=== PATIENT | female | born 1975 | race Caucasian/White ===

== ENCOUNTER 2016-10-03 07:48 | Observation (INO) | payer OTHER ==
[2016-10-03] MEDS ORDERED: ONDANSETRON HCL/PF 4 MG/ 2ML VIAL IVP ONE (07:58)
[2016-10-03] MEDS ORDERED: 0.9 % SODIUM CHLORIDE 500 ML IV ONE (07:58)
[2016-10-03] MEDS ORDERED: PANTOPRAZOLE SODIUM 40 MG in 0.9 % SODIUM CHLORIDE 50 ML IV ONE (08:02)
[2016-10-03 08:33] LABS: APPEARANCE,URINE Slightly Cloudy (CLEAR); COLOR,URINE Amber (YELLOW); OCCULT BLOOD,URINE 2+ (NEGATIVE)
[2016-10-03 08:41] LABS: AMPHETAMINE NEGATIVE ng/mL (<1000); BARBITURATES NEGATIVE ng/mL (<300); CANNABINOIDS NON NEGATIVE ng/mL (<50); COCAINE NEGATIVE ng/mL (<150); METHAMPHETAMINE NEGATIVE ng/mL (<1000); METHYLENEDIOXYMETHAMPHETAMINE NEGATIVE ng/mL (<500)
[2016-10-03 08:49] LABS: BASOPHILS % 0.1 (0.0-1.5); EOSINOPHILS % 0.4 % (0.0-6.8); MEAN CORPUSCULAR HEMOGLOBIN 34.8 pg (28.0-34.0); MEAN CORPUSCULAR VOLUME 101.8 fl (80.0-100.0); MONOCYTES % 2.6 % (0.0-11.0); NEUTROPHILS # 10.6 # k/uL (1.4-7.7)
[2016-10-03] MEDS ORDERED: HALOPERIDOL LACTATE 5 MG/ML VIAL IM ONE ×2 (09:03→17:49)
[2016-10-03] MEDS ORDERED: METOCLOPRAMIDE HCL 5 MG TABLET PO ONE (09:05)
[2016-10-03 09:07] LABS: eGFR (African) 23; eGFR (Non-African) 19
[2016-10-03] MEDS ORDERED: HYOSCYAMINE SULFATE 0.125 MG TAB.SUBL SL ONE (09:07)
[2016-10-03 12:42] VITALS: BMI 18.8
[2016-10-03] MEDS ORDERED: ONDANSETRON HCL/PF 4 MG/ 2ML VIAL IVP PRN (13:39)
[2016-10-03] MEDS ORDERED: HALOPERIDOL LACTATE 5 MG/ML VIAL IM SCH ×2 (13:39→18:00)
[2016-10-03] MEDS ORDERED: LORazepam 2 MG/ML VIAL IVP PRN (13:39)
[2016-10-03] MEDS ORDERED: 0.9 % SODIUM CHLORIDE 1,000 ML IV SCH (13:39)
--- NOTE | 2016-10-03 13:44 | ED Physician Documentation ---
Nausea/Vomiting/Diarrhea - HISTORIAN Historian: patient - HPI Stated Complaint: vomiting Chief Complaint: Nausea,Vomiting,Diarrhea Additional Information: Alcoholic, in program at [facility], unable to stop vomiting. Was admitted to detox at [facility] earlier week, released Thursday. Went home and drank on the way back to [facility] program. Intractable vomiting since Thursday. Onset: minutes Duration: persistent Timing: still present Context: other (alcoholism). denies: out of country travel, bad food, recent trauma Severity: moderate Further Comments: no - Associated Symptoms Vomiting: frequent Diarrhea: other (none) Abdominal Pain: cramping, epigastric - ROS CONST: other (alcoholism) CVS/RESP: denies: chest pain, shortness of breath, cough, dry cough, non- productive cough, productive cough, bloody cough GI/: other (recurrent n/v) MS/SKIN/LYMPH: denies: joint pain, leg swelling, rash, swollen glands, ankle swelling NEURO/PSYCH: none - PAST HX Past History: other (depression, gerd, htn, etoh abuse, chronic pancreatitisd) Surgeries/Procedures: other (hysterectomy) Immunizations: referred to PCP Allergies/Adverse Reactions: Allergies Allergy/AdvReac Type Severity Reaction Status Date / Time aspirin AdvReac Nausea/Vomi Verified 10/03/16 08:46 ting Home Medications: Ambulatory Orders Medication Instructions Recorded Carbamazepine [Tegretol] 200 mg PO BID 10/03/16 Cetirizine HCl [Zyrtec] 10 mg PO QDAY 10/03/16 Chlordiazepoxide HCl [Librium] 50 mg PO Q4 PRN 10/03/16 Citalopram Hydrobromide [Celexa] 20 mg PO QD 10/03/16 Fluticasone Propionate [Flovent 50 mcg IH 10/03/16 Diskus] Hydroxyzine HCl [Atarax] 25 - 50 mg PO TID PRN 10/03/16 Pantoprazole Sodium [Protonix] 40 mg PO 0700 10/03/16 Thiamine HCl [Vitamin B-1] 100 mg PO QDAY 10/03/16 Trazodone HCl 50 mg PO PRN 10/03/16 Vit B Comp&C/Folic Acid/Vit D3 1 each PO QDAY 10/03/16 [Dialyvite 800 Plus D Wafer] amLODIPine BESYLATE [Norvasc] 5 mg PO 0900 10/03/16 - SOCIAL HX Smoking History: cigarettes Alcohol Use: heavy Drug Use: marijuana - FAMILY HX Family History: other (catarracts) - VITAL SIGNS Vital Signs: Vital Signs Temp Pulse Resp BP Pulse Ox 97.9 F 95 H 16 130/93 97 10/03/16 12:37 10/03/16 12:37 10/03/16 12:37 10/03/16 12:37 10/03/16 12:37 - REVIEWED ASSESSMENTS Nursing Assessment Reviewed: Yes Vitals Reviewed: Yes Progress - Results/Orders Results/Orders: cbc, cmp, ua, amylase, ct abdomen/pelvis ordered - Progress Progress: Pt. given 5 mg Haldol im, 1 liter ns iv, Reglan 10 mg p.o., Hyoscyamine 0.25 mg p.o., Zofran 8 mg ivp, Protonix 40 mg ivpb in er. Critical Care Note - Critical Care Note Total Time (mins): 0 ED Results Lab/Radiology - Lab Results Lab Results: Lab Results 10/03/16 10/03/16 10/03/16 08:40 08:40 08:40 WBC 12.10 K/ul H K/ul (4.00-12.00) RBC 4.97 M/ul M/ul (3.90-5.20) Hgb 17.3 g/dL H g/dL (12.0-16.0) Hct 50.6 % H % (34.5-46.5) MCV 101.8 fl H fl (80.0-100.0) MCH 34.8 pg H pg (28.0-34.0) MCHC 34.2 g/dL g/dL (30.0-36.0) RDW 13.1 % % (11.3-14.3) Plt Count 155 K/mm3 K/mm3 (130-400) Neut % (Auto) 88.0 % H % (39.0-79.0) Lymph % (Auto) 7.6 % L % (16.0-50.0) Kimball % (Auto) 2.6 % % (0.0-11.0) Eos % (Auto) 0.4 % % (0.0-6.8) Baso % (Auto) 0.1 (0.0-1.5) Neut # 10.6 # k/uL H # k/uL (1.4-7.7) Lymph # 0.9 # k/uL # k/uL (0.6-4.0) Kimball # 0.3 # k/uL # k/uL (0.0-0.9) Eos # 0.0 # k/uL # k/uL (0.0-0.6) Baso # 0.0 # k/uL # k/uL (0.0-0.5) Reactive Lymphs % 1.3 % % (0.0-5.0) Reactive Lymphs # 0.2 # k/uL # k/uL (0.0-0.8) Sodium 140 mmol/L mmol/L (136-145) Potassium 3.0 mmol/L L mmol/L (3.5-5.0) Chloride 96 mmol/L L mmol/L (98-110) Carbon Dioxide 21 mmol/L mmol/L (20-32) BUN 14 mg/dL mg/dL (10-26) Creatinine 2.9 mg/dL H mg/dL (0.4-1.5) Estimated Creat Clear 24 Est GFR ( Amer) 23 L (60 - ) Est GFR (Non-Af Amer) 19 L (60 - ) Glucose 153 mg/dL H mg/dL (70-99) Calcium 11.5 mg/dL H mg/dL (8.5-10.5) Total Bilirubin 1.0 mg/dL mg/dL (0.2-1.2) AST 71 U/L H U/L (0-41) ALT 48 U/L H U/L (0-45) Alkaline Phosphatase 134 U/L H U/L (46-116) Total Protein 10.4 g/dL H g/dL (6.0-8.5) Albumin 5.9 g/dL H g/dL (3.0-5.5) Amylase 96 U/L U/L (20-104) Serum HCG, Qual Negative (NEGATIVE) Urine Color Urine Appearance Urine pH Ur Specific [place] Urine Protein Urine Ketones Urine Occult Blood Urine Nitrite Urine Bilirubin Urine Urobilinogen Ur Leukocyte Esterase Urine Glucose Opiates Screen Oxycodone Screen Methadone Screen POC Urine Barbiturates Amphetamines Screen POC Ur Methamphetamine MDMA Benzodiazepines Screen Cocaine Screen Marijuana (THC) Screen Ethyl Alcohol < 10.0 MG/DL MG/DL (<10.0) 10/03/16 10/03/16 08:25 08:25 WBC RBC Hgb Hct MCV MCH MCHC RDW Plt Count Neut % (Auto) Lymph % (Auto) Kimball % (Auto) Eos % (Auto) Baso % (Auto) Neut # Lymph # [place] # Eos # Baso # Reactive Lymphs % Reactive Lymphs # Sodium Potassium Chloride Carbon Dioxide BUN Creatinine Estimated Creat Clear Est GFR ( Amer) Est GFR (Non-Af Amer) Glucose Calcium Total Bilirubin AST ALT Alkaline Phosphatase Total Protein Albumin Amylase Serum HCG, Qual Urine Color Angela (YELLOW) Urine Appearance Slightly cloudy (CLEAR) Urine pH 5.0 (5.0 - 8.0) Ur Specific [place] >=1.030 H (1.010-1.030) Urine Protein 3+ mg/dL H mg/dL (NEGATIVE) Urine Ketones 2+ mg/dL H mg/dL (NEGATIVE) Urine Occult Blood 2+ H (NEGATIVE) Urine Nitrite Negative (NEGATIVE) Urine Bilirubin 3+ H (NEGATIVE) Urine Urobilinogen 1.0 Eu Eu (0.2-1.0) Ur Leukocyte Esterase 1+ H (NEGATIVE) Urine Glucose Negative mg/dL mg/dL (NEGATIVE) Opiates Screen Negative (2000 ng/mL) Oxycodone Screen Negative ng/mL ng/mL (<100) Methadone Screen Negative ng/mL ng/mL (<300) POC Urine Barbiturates Negative ng/mL ng/mL (<300) Amphetamines Screen Negative ng/mL ng/mL (<1000) POC Ur Methamphetamine Negative ng/mL ng/mL (<1000) MDMA Negative ng/mL ng/mL (<500) Benzodiazepines Screen Non negative ng/mL H ng/mL (<300) Cocaine Screen Negative ng/mL ng/mL (<150) Marijuana (THC) Screen Non negative ng/mL H ng/mL (<50) Ethyl Alcohol - Radiology Radiology Impressions: ct abdomen shows no obstruction, ileus or acute pancreatitis - Orders Orders: ED Orders Category Date Time Status Place Saline Lock/IV Now Care 10/03/16 07:[address] ABD & PELVIS W/O CON Stat Exams 10/03/16 Ordered AMYLASE Routine Lab 10/03/16 08:40 Completed CBC/PLATELET/DIFF Routine Lab 10/03/16 08:40 Completed CMP Routine Lab 10/03/16 08:40 Completed DRUG SCREEN URINE MEDICAL ONLY Routine Lab 10/03/16 08:25 Completed ETHANOL MEDICAL USE ONLY Routine Lab 10/03/16 08:40 Completed SERUM HCG Routine Lab 10/03/16 08:40 Completed URINALYSIS Routine Lab 10/03/16 08:25 Completed URINE CULTURE Routine Lab 10/03/16 08:25 Received 0.9 % Sodium Chloride [Normal Saline] 500 ml Med 10/03/16 07:58 Discontinued IV NOW Haloperidol Lactate [Haldol] Med 10/03/16 09:03 Discontinued 5 mg IM NOW ONE Hyoscyamine Sulfate [Oscimin Sl] Med 10/03/16 09:07 Discontinued 0.25 mg SL NOW ONE Metoclopramide HCl [Reglan] Med 10/03/16 09:05 Discontinued 5 mg PO NOW ONE Ondansetron HCl/Pf [Zofran 4 mg/2 ml] Med 10/03/16 07:58 Discontinued 8 mg IVP NOW ONE Pantoprazole Sodium [Protonix] 40 mg Med 10/03/16 08:02 Discontinued 0.9 % Sodium Chloride [Sodium Chloride] 50 ml IV 1T Transfer Routine Transfer 10/03/16 Ordered Nausea Physical Exam - EXAM General Appearance: alert, moderate distress EENT: eye inspection normal, ENT inspection normal, pharynx normal, XENA, no nystagmus, TM's nml, pharyngeal erythema, dry mucous membranes Neck: normal inspection, thyroid normal, supple Respiratory: no resp distress, chest non-tender, breath sounds normal CVS: reg rate & rhythm, heart sounds normal, equal pulses, no murmur, no gallop , PMI nml, no JVD, no friction rub Abdomen: no organomegaly, tenderness (epigastrium), guarding. No: rebound Back: non-tender, painless ROM Skin: warm/dry, normal color Extremities: non-tender, normal range of motion, no evidence of injury, no edema Neuro/Psych: oriented X3, CN's nml as tested, motor nml, sensation nml, depressed mood/affect Discharge Clincal Impression: Dehydration Home Medications: Ambulatory Orders Carbamazepine [Tegretol] 200 mg PO BID 10/03/16 Cetirizine HCl [Zyrtec] 10 mg PO QDAY 10/03/16 Chlordiazepoxide HCl [Librium] 50 mg PO Q4 PRN 10/03/16 Citalopram Hydrobromide [Celexa] 20 mg PO QD 10/03/16 Fluticasone Propionate [Flovent Diskus] 50 mcg IH 10/03/16 Hydroxyzine HCl [Atarax] 25 - 50 mg PO TID PRN 10/03/16 Pantoprazole Sodium [Protonix] 40 mg PO 0700 10/03/16 Thiamine HCl [Vitamin B-1] 100 mg PO QDAY 10/03/16 Trazodone HCl 50 mg PO PRN 10/03/16 Vit B Comp&C/Folic Acid/Vit D3 [Dialyvite 800 Plus D Wafer] 1 each PO QDAY 10/03 amLODIPine BESYLATE [Norvasc] 5 mg PO 0900 10/03/16 Comments: Case discussed with Dr. Lopez, accepts admission Condition: Stable Disposition: ADMITTED INPATIENT Decision to Admit: [id number] Decision Time: 11:30
[2016-10-03] MEDS ORDERED: MULTIVITAMIN 1 EACH TABLET ONE (14:16)
[2016-10-03] MEDS ORDERED: SULFAMETHOXAZOLE/TRIMETHOPRIM 1 EACH TABLET PO ONE (14:16)
[2016-10-03] MEDS ORDERED: CARBAMAZEPINE 200 MG TABLET PO ONE (14:16)
[2016-10-03] MEDS ORDERED: POTASSIUM CHLORIDE 10 MEQ TABLET.ER PO ONE (14:16)
[2016-10-03] MEDS ORDERED: CITALOPRAM HYDROBROMIDE 20 MG TABLET ONE (14:17)
[2016-10-03] MEDS: CITALOPRAM HYDROBROMIDE 20 MG TABLET PO SCH (14:37)
[2016-10-03] MEDS: POTASSIUM CHLORIDE 10 MEQ TABLET.ER PO SCH ×2 (14:37→20:47)
[2016-10-03] MEDS: SULFAMETHOXAZOLE/TRIMETHOPRIM 1 EACH TABLET PO SCH ×2 (14:37→20:46)
[2016-10-03] MEDS: MULTIVITAMIN 1 EACH TABLET PO SCH (14:38)
[2016-10-03] MEDS ORDERED: 0.9 % SODIUM CHLORIDE 1,000 ML IV ONE ×2 (14:40→23:20)
[2016-10-03] MEDS: HYOSCYAMINE SULFATE 0.125 MG TAB.SUBL SL SCH ×2 (14:51→20:47)
[2016-10-03] MEDS: 0.9 % SODIUM CHLORIDE 1,000 ML IV SCH ×2 (15:01→23:20)
[2016-10-03] MEDS ORDERED: SALINE FLUSH 10 ML DISP.SYRIN IVF ONE ×2 (17:13→19:24)
[2016-10-03] MEDS: METOCLOPRAMIDE HCL 5 MG TABLET PO SCH ×2 (18:26→20:48)
--- NOTE | 2016-10-03 18:45 | History and Physical Report ---
History of Present Illnes - History of Present Illness Reason for Visit: nausea and vomiting History of Present Illness: 41yo white female who has a history of alcohol dependency and abuse. Approximately 5 days prior to admission patient was admitted to [facility] for alcohol treatment. Patient appeared to be having a lot of nausea and vomiting related to withdrawing from alcohol. She was subsequently admitted to the [facility] for detox 3 days prior to admission. Patient was discharged yesterday. Patient continues to have a log of nausea and vomiting. Patient states that she is vomiting every 5-10 minutes. Usually will have some phlegm that she is bringing up. Patient states she's had some flecks of blood in her emesis. Patient does complain of chills but no fever. Patient has had some mild diarrhea. No hematochezia or melena appreciated. Last stool was yesterday. Patient has had decreased oral intake and feels like she may be getting dehydrated. Patient was subsequently seen in the ED. Patient was noted to have an elevated BUN/creatinine. Was felt that she was having significant dehydration. Patient was given Zofran and Phenergan and Haldol to help control her nausea. Patient was subsequently admitted to the hospital for further evaluation and treatment. Patient's alcohol of choice is whiskey. Patient is drinking approximately a 1/ 5 of whiskey per day or more. Last drink was on the day prior to admission. Patient states that she has had a history of elevated liver function tests related to her alcoholism. Patient denies any previous kidney problems. Patient denies any other medical problems related to alcohol alcohol withdrawal. Patient is started drinking and 23 years of age. Patient did have a 2 year sobriety for years ago. Patient has started to attend outpatient program but does not feel it was codominant meet her needs. Patient was subsequently admitted to [facility]. - Past Medical History Cardiac: HTN Gastrointestinal: Other (chronic pancreatitis) Hepatobiliary: Other (history of elevated LFT (improved from [facility] admission)) Psych: Addictions (EtOH) - Past Surgical History Past Surgical History: Cholecystectomy, Other (s/p Whipple procedure, drainage of pancreatic cyst) - Past Social History Smoke: <1 pack per day (10 cigarettes a day) Alcohol: Heavy (1/5th wiskey daily, last drink yesterday) Drugs: Marijuana Lives: With Family Domestic Violence: Negative - Health Maintenance Health Maintenance: Tetanus (2017), Influenza Vaccine Influenza Vaccine: Current for this Influenza Season Pneumonia Vaccine: No Resuscitation Status: Resusciation Status Resuscitation Status Full Code - Unable to Obtain History Unable to Obtain: No Review of Systems - Review of Systems Constitutional: Chills. negative: Fever, Sweats, Weakness Eyes: negative: pain, vision change ENT: negative: Ear Pain, Ear Discharge, Nose Pain, Nose Discharge, Nose Congestion, Mouth Pain, Throat Pain Respiratory: negative: Cough, Dry, Shortness of Breath, Hemoptysis, SOB with Excertion, Pleuritic Pain, Sputum, Wheezing Cardiovascular: negative: Chest Pain, Palpitations, Paroxysmal Noc. Dyspnea, Light Headedness Gastrointestinal: Nausea, Vomiting (q10-15 minutes), Abdominal Pain (mild diffuse), Diarrhea (one time in the last 24 hours). negative: Constipation, Melena, Hematochezia Genitourinary: Incontinence. negative: Dysuria, Frequency, Hematuria, Retention Musculoskeletal: Back Pain Skin: negative: Rash Neurological: negative: Weakness, Numbness, Incoordination, Change in Speech, Confusion, Seizures - Medications/Allergies Allergies/Adverse Reactions: Allergies Allergy/AdvReac Type Severity Reaction Status Date / Time aspirin AdvReac Nausea/Vomi Verified 10/03/16 08:46 ting Home Medications: Home Medications Carbamazepine [Tegretol] 200 mg PO BID 10/03/16 Cetirizine HCl [Zyrtec] 10 mg PO QDAY 10/03/16 Chlordiazepoxide HCl [Librium] 50 mg PO Q4 PRN 10/03/16 Citalopram Hydrobromide [Celexa] 20 mg PO QD 10/03/16 Fluticasone Propionate [Flovent Diskus] 50 mcg IH 10/03/16 Hydroxyzine HCl [Atarax] 25 - 50 mg PO TID PRN 10/03/16 Pantoprazole Sodium [Protonix] 40 mg PO 0700 10/03/16 Thiamine HCl [Vitamin B-1] 100 mg PO QDAY 10/03/16 Trazodone HCl 50 mg PO PRN 10/03/16 Vit B Comp&C/Folic Acid/Vit D3 [Dialyvite 800 Plus D Wafer] 1 each PO QDAY 10/03 amLODIPine BESYLATE [Norvasc] 5 mg PO 0900 04/21/17 Current Inpatient Medications: Current Inpatient Medications Amlodipine Besylate (Norvasc) 10 mg PO 0900 [facility] Carbamazepine (Tegretol) 200 mg PO BID [facility] Citalopram Hydrobromide (Celexa) 20 mg PO QD [facility] Last Admin: 10/03/16 14:37 Dose: 20 mg Haloperidol Lactate (Haldol) 5 mg IM Q8H [facility] Last Admin: 10/03/16 18:25 Dose: Not Given Hyoscyamine (Oscimin Sl) 0.125 mg SL Q6H [facility] Last Admin: 10/03/16 14:51 Dose: 0.125 mg Pantoprazole Sodium 40 mg/ (Sodium Chloride) 50 mls @ 100 mls/hr IV DAILY [facility] Sodium Chloride (Normal Saline) 1,000 mls @ 125 mls/hr IV Q10H [facility] Last Admin: 10/03/16 15:01 Dose: 125 mls/hr Lorazepam (Ativan) 1 mg IVP Q6 PRN PRN Reason: Anxiety Metoclopramide HCl (Reglan) 10 mg PO ACHS [facility] Last Admin: 10/03/16 18:26 Dose: 10 mg Multivitamins (Tab-A-Mariaelena) 1 each PO DAILY [facility] Last Admin: 10/03/16 14:38 Dose: 1 each Ondansetron HCl (Zofran 4 Mg/2 Ml) 8 mg IVP Q6H PRN PRN Reason: Nausea / Vomiting Potassium Chloride (Klor-Con 10) 40 meq PO BID [facility] Last Admin: 10/03/16 14:37 Dose: 40 meq Thiamine HCl (Vitamin B-1) 100 mg PO QDAY [facility] Trimethoprim/Sulfamethoxazole (Bactrim Ds) 1 each PO BID [facility] Stop: 10/13/16 13:38 Last Admin: 10/03/16 14:37 Dose: 1 each Exam - Exam Vital Signs: Vital Signs (72 hours) 10/03/16 10/03/16 10/03/16 12:20 12:37 13:39 Temperature 97.9 F 97.9 F Pulse Rate [ 95 H 95 H Left] Pulse Rate [ 120 H Pulse ox] Respiratory 16 16 Rate Blood Pressure 130/93 130/93 [Left Arm] O2 Sat by Pulse 97 97 97 Oximetry General: Alert, Oriented to Person, Oriented to Place, Oriented to Time, Cooperative, No acute distress HEENT: Atraumatic, PERRLA, Hearing Grossly Normal. No: Mouth Mucous membr. moist/[place] (dry), Pharyngeal Erythema Neck: No: Stridor, Rigidity Carotids: WNL Thyroid: WNL Lungs: Clear to auscultation, Normal air movement, Speaks full Sentences. No: Wheezes, Rales, Rhonchi Cardiovascular: Regular rate, Normal S1, Normal S2, No murmurs. No: Gallops, Rubs Abdomen: Normal bowel sounds, Soft, No hepatospenomegaly, No masses. No: Distended Integumentary: Normal, [place], Warm, Dry Extremities: No clubbing, No cyanosis, No edema, Normal pulses Neurological: Normal gait, Normal speech, Strength Equal Bilat, Normal tone, Cranial nerves 3-12 NL, Reflexes 2+ Psych/Mental Status: Mental status NL, Mood NL, Appropriate Affect, Intact Judgment Assessment/Plan - Assessment/Plan (1) Dehydration Status: Acute Current Visit: Yes Assessment: IV fluids and Zofran (2) Acute renal failure Status: Acute Current Visit: Yes Assessment: felt to be related to dehydration (3) Alcohol abuse Status: Chronic Current Visit: Yes Assessment: Patient recently withdrawn [facility] this week, will watch for symptoms , Tegretol prophylaxis (4) Essential hypertension Status: Chronic Current Visit: Yes Assessment: continue home med (5) Elevated LFTs Status: Acute Current Visit: Yes Assessment: Improved over labs done earlier this week VTE Assessment - RISK FACTOR SCORE VTE RISK FACTOR SCORES: OTHER (none) - RISK VTE LOW RISK: SCORE OF 1 OR LESS (RISK PROXIMAL DVT 0.4%) NO PROPHYLAXIS NEEDED
[2016-10-03] MEDS ORDERED: ONDANSETRON HCL/PF 4 MG/ 2ML VIAL ONE ×2 (19:24→19:27)
[2016-10-03] MEDS: CARBAMAZEPINE 200 MG TABLET PO SCH (20:48)
[2016-10-03] MEDS ORDERED: LORazepam 2 MG/ML VIAL ONE (21:41)
[2016-10-04] MEDS: HYOSCYAMINE SULFATE 0.125 MG TAB.SUBL SL SCH ×3 (02:21→13:43)
[2016-10-04] MEDS ORDERED: THIAMINE HCL 100 MG TABLET PO ONE (03:12)
[2016-10-04] MEDS ORDERED: POTASSIUM CHLORIDE 10 MEQ TABLET.ER PO ONE ×2 (03:13→08:15)
[2016-10-04] MEDS ORDERED: METOCLOPRAMIDE HCL 5 MG TABLET ONE (03:13)
[2016-10-04] MEDS ORDERED: CARBAMAZEPINE 200 MG TABLET PO ONE (03:13)
[2016-10-04] MEDS ORDERED: MULTIVITAMIN 1 EACH TABLET ONE ×2 (03:13→08:22)
[2016-10-04] MEDS ORDERED: SULFAMETHOXAZOLE/TRIMETHOPRIM 1 EACH TABLET PO ONE (03:13)
[2016-10-04] MEDS ORDERED: amLODIPine BESYLATE 5 MG TABLET ONE (03:14)
[2016-10-04] MEDS ORDERED: PANTOPRAZOLE SODIUM INJ. 40 MG VIAL ONE (03:14)
[2016-10-04] MEDS ORDERED: CITALOPRAM HYDROBROMIDE 20 MG TABLET ONE ×2 (03:14→13:39)
--- NOTE | 2016-10-04 05:51 | Diagnostic Imaging Report ---
BRIJESH SIMMONS~ [facility] [id number] [facility] [address] [place], [place]. [address] ~ ~ ~ ~ Report Submission Date: Oct 03, 2016 10:24:23 AM CDT Patient ~ Study Name: ADELE EVANS ~ Date: Oct 03, 2016 9:39:38 AM CDT ~ Modality Type: CT\SR Gender: F ~ Description: CT ABD & PELVIS W/O CO : 79 ~ Institution: [facility] Physician: BRIJESH SIMMONS ~ ~ ~ ~ Computed tomography of the abdomen and pelvis without contrast HISTORY: ~ 3 weeks of abdominal pain FINDINGS: ~ Transverse abdomen and pelvis sections are obtained without contrast revealing severe hepatic steatosis and clustered small bowel adjacent to the ruth hepatis with adjacent anastomotic paz. ~The gallbladder is not identified. ~ A few pancreatic head calcifications and diffuse pancreatic atrophy are observed. ~The kidneys, adrenals, and spleen are unremarkable. ~Bowel loops exhibit normal caliber and wall thickness. ~ Pelvic sections reveal hysterectomy and possibly appendectomy. ~Pelvic bowel loops are normal in caliber. ~The urinary bladder is decompressed. ~ IMPRESSION: ~ The patient's surgical history has not been provided and intravenous contrast was not administered, significantly limiting the exam. ~Postoperative changes are observed near the ruth hepatis with a cluster of bowel loops in this region. ~The gallbladder is not identified. Marked hepatic steatosis. Pancreatic atrophy and minimal pancreatic head calcification. ~ Hysterectomy and possibly appendectomy. ~ Electronically signed on Oct 03, 2016 10:24:23 AM CDT by: Donell LOPES
[2016-10-04 06:37] LABS: BASOPHILS % 0.3 (0.0-1.5); EOSINOPHILS % 1.4 % (0.0-6.8); MEAN CORPUSCULAR HEMOGLOBIN 34.6 pg (28.0-34.0); MONOCYTES % 4.4 % (0.0-11.0); NEUTROPHILS # 4.4 # k/uL (1.4-7.7)
[2016-10-04] MEDS: METOCLOPRAMIDE HCL 5 MG TABLET PO SCH ×2 (06:38→11:57)
[2016-10-04 06:52] LABS: eGFR (African) > 60; eGFR (Non-African) > 60
[2016-10-04] MEDS: POTASSIUM CHLORIDE 10 MEQ TABLET.ER PO SCH (08:14)
[2016-10-04] MEDS: SULFAMETHOXAZOLE/TRIMETHOPRIM 1 EACH TABLET PO SCH (08:14)
[2016-10-04] MEDS: CARBAMAZEPINE 200 MG TABLET PO SCH (08:17)
[2016-10-04] MEDS: MULTIVITAMIN 1 EACH TABLET PO SCH (08:23)
--- NOTE | 2016-10-04 08:26 | Discharge Summary ---
Discharge Summary - Discharge Sumary History of Present Illness: 41yo white female who has a history of alcohol dependency and abuse. Approximately 5 days prior to admission patient was admitted to [facility] for alcohol treatment. Patient appeared to be having a lot of nausea and vomiting related to withdrawing from alcohol. She was subsequently admitted to the [facility] for detox 3 days prior to admission. Patient was discharged yesterday. Patient continues to have a log of nausea and vomiting. Patient states that she is vomiting every 5-10 minutes. Usually will have some phlegm that she is bringing up. Patient states she's had some flecks of blood in her emesis. Patient does complain of chills but no fever. Patient has had some mild diarrhea. No hematochezia or melena appreciated. Last stool was yesterday. Patient has had decreased oral intake and feels like she may be getting dehydrated. Patient was subsequently seen in the ED. Patient was noted to have an elevated BUN/creatinine. Was felt that she was having significant dehydration. Patient was given Zofran and Phenergan and Haldol to help control her nausea. Patient was subsequently admitted to the hospital for further evaluation and treatment. Patient's alcohol of choice is whiskey. Patient is drinking approximately a 1/ 5 of whiskey per day or more. Last drink was on the day prior to admission. Patient states that she has had a history of elevated liver function tests related to her alcoholism. Patient denies any previous kidney problems. Patient denies any other medical problems related to alcohol alcohol withdrawal. Patient is started drinking and 23 years of age. Patient did have a 2 year sobriety for years ago. Patient has started to attend outpatient program but does not feel it was codominant meet her needs. Patient was subsequently admitted to [facility]. Home Medications: Ambulatory Orders Medication Instructions Recorded Carbamazepine [Tegretol] 200 mg PO BID 10/03/16 Cetirizine HCl [Zyrtec] 10 mg PO QDAY 10/03/16 Chlordiazepoxide HCl [Librium] 50 mg PO Q4 PRN 10/03/16 Citalopram Hydrobromide [Celexa] 20 mg PO QD 10/03/16 Fluticasone Propionate [Flovent 50 mcg IH 10/03/16 Diskus] Hydroxyzine HCl [Atarax] 25 - 50 mg PO TID PRN 10/03/16 Pantoprazole Sodium [Protonix] 40 mg PO 0700 10/03/16 Thiamine HCl [Vitamin B-1] 100 mg PO QDAY 10/03/16 Trazodone HCl 50 mg PO PRN 10/03/16 Vit B Comp&C/Folic Acid/Vit D3 1 each PO QDAY 10/03/16 [Dialyvite 800 Plus D Wafer] amLODIPine BESYLATE [Norvasc] 5 mg PO 0900 10/03/16 Sulfamethoxazole/Trimethoprim 1 each PO BID #6 tablet 10/04/16 [Bactrim DS] Consultations this Visit: None Procedures this Visit: None Allergies/Adverse Reactions: Allergies Allergy/AdvReac Type Severity Reaction Status Date / Time aspirin AdvReac Nausea/Vomi Verified 10/03/16 08:46 ting Patient Problems: Current Active Problems Problem Status Onset Acute renal failure Acute Dehydration Acute Elevated LFTs Acute Alcohol abuse Chronic Essential hypertension Chronic Discharge Summary: Patient was started on normal saline IV and Zofran for nausea. After admission patient was placed on clear liquids. The nausea and vomiting did improve. Patient was feeling better on the morning of discharge. After having a clear liquid diet she was given a regular diet. She did have an episode of vomiting but felt that she could keep oral fluids down and was discharged home. Creatinine improved from 0.2.9 to 0.7, BUN from 14 to 6. Potassium improved from 3.0 to 3.2. It is felt the hypokalemia was due to repeated vomiting. Patient was found to have some mild pyuria and started on Bactrim for possible UTI while awaiting culture report. Preliminary culture is growing gram neg rods. - Final Diagnosis (1) Dehydration Problems: Improved with IV fluids (2) Acute renal failure Problems: resolved, appeared to be prerenal (3) Alcohol abuse Problems: will return to treatment (4) Essential hypertension Problems: stable (5) Elevated LFTs Problems: continue to monitor
[2016-10-04] MEDS ORDERED: PANTOPRAZOLE SODIUM 40 MG in 0.9 % SODIUM CHLORIDE 50 ML IV SCH (09:00)
[2016-10-04] MEDS ORDERED: amLODIPine BESYLATE 5 MG TABLET PO SCH (09:00)
[2016-10-04] MEDS ORDERED: THIAMINE HCL 100 MG TABLET PO SCH (09:00)
[2016-10-04] MEDS ORDERED: 0.9 % SODIUM CHLORIDE 50 ML IV ONE (09:15)
[2016-10-04 10:08] VITALS: BP 140/94
[2016-10-04] MEDS: 0.9 % SODIUM CHLORIDE 1,000 ML IV SCH (12:00)
[2016-10-04] MEDS: CITALOPRAM HYDROBROMIDE 20 MG TABLET PO SCH (13:44)
== END 2016-10-04 14:20 | disposition home or self-care (01) ==
LOC: ED 07:48 → SOUTH 12:00
PROVIDERS: ADMIT Family Medicine; ATTEND Family Medicine
DX: E86.0 Dehydration (principal); N17.9 Acute kidney failure, unspecified; I10 Essential (primary) hypertension; F10.10 Alcohol abuse, uncomplicated
CPT/HCPCS: 36415; 74176; 80048; 80053; 80320; 80377; 81002; 82150; 84703; 85025; 87086; 87186; A9270; G0378; J1630; J2060; J2405; J7030; J7060; 96361; 96365; 96372; 96375; 96376; 99284; G0480; G0481; S1016

== ENCOUNTER 2016-10-11 18:04 | Emergency (ER) | payer OTHER ==
--- NOTE | 2016-10-11 18:57 | ED Physician Documentation ---
Chest Pain - HISTORIAN Historian: patient, child - HPI Stated Complaint: abdominal pain - VITAL SIGNS Vital Signs: Vital Signs Temp Pulse Resp BP Pulse Ox 99.2 F 95 H 21 181/120 97 10/11/16 18:19 10/11/16 18:19 10/11/16 18:19 10/11/16 18:19 10/11/16 18:19 <MelitonArnol kwon Misael - Last Filed: 10/11/16 18:56> - HISTORIAN Historian: patient - HPI Chief Complaint: Abdominal Pain Additional Information: Epigastric pain began this am that feels like someone is stepping on the area. Vomited once about 1730. Movement, deep breath, make pain worse. Santiago sbeen sipping antacid (white liquid) all day w/o relief. Has phenergan and zofran at rehab center, but did not take them Presents now for nausea and abdomina lpain. Sure this is her pancreatitis. Says amylase is not sufficient to test for pancreatitis, that her doctors at [facility] would check amylase and lipase. Hospitalized here on 10/03 for same. Last normal bowel movement this am. Last known Well Date: 10/10/16 Last Known Well Time: 23:55 Relieved By: nothing - ROS CONST: no problems - PAST HX NV risk factors: hypertension, other (pancreatitis, GERD) - SOCIAL HX Smoking History: cigarettes Alcohol Use: heavy (none for 14 days) - FAMILY HX Family HX: none (no signif) - VITAL SIGNS Vital Signs: Vital Signs Temp Pulse Resp BP Pulse Ox 99.2 F 95 H 21 181/120 97 10/11/16 18:19 10/11/16 18:19 10/11/16 18:19 10/11/16 18:19 10/11/16 18:19 - REVIEWED ASSESSMENTS Nursing Assessment Reviewed: Yes Vitals Reviewed: Yes <KHANG WOODSON - Last Filed: 10/11/16 20:34> - PAST HX Allergies/Adverse Reactions: Allergies Allergy/AdvReac Type Severity Reaction Status Date / Time aspirin AdvReac Nausea/Vomi Verified 10/11/16 18:27 ting Home Medications: Ambulatory Orders Medication Instructions Recorded Carbamazepine [Tegretol] 200 mg PO BID 10/03/16 Cetirizine HCl [Zyrtec] 10 mg PO QDAY 10/03/16 Chlordiazepoxide HCl [Librium] 50 mg PO Q4 PRN 10/03/16 Citalopram Hydrobromide [Celexa] 20 mg PO QD 10/03/16 Fluticasone Propionate [Flovent 50 mcg IH PRN 10/03/16 Diskus] Hydroxyzine HCl [Atarax] 25 - 50 mg PO TID PRN 10/03/16 Pantoprazole Sodium [Protonix] 40 mg PO 0700 10/03/16 Thiamine HCl [Vitamin B-1] 100 mg PO QDAY 10/03/16 Trazodone HCl 25 - 50 mg PO HS PRN 10/03/16 Vit B Comp&C/Folic Acid/Vit D3 1 each PO QDAY 10/03/16 [Dialyvite 800 Plus D Wafer] amLODIPine BESYLATE [Norvasc] 5 mg PO 0900 10/03/16 Buspirone HCl [BUSPAR] 10 mg PO TID 10/11/16 Naltrexone HCl [Revia] 50 mg PO DAILY 10/11/16 Ondansetron HCl Rapdis [Zofran Odt] 4 mg PO Q6 PRN 10/11/16 Oxazepam [Serax] 30 mg PO Q4H PRN 10/11/16 Promethazine HCl [Phenergan] 25 mg IJ Q6H PRN 10/11/16 Progress - Progress Progress: Nausea relieved by phenergan. Within 30 minutes, says pain moving distally and nausea increases. Wants jennifer nmedication. Denies relief from gi cocktail. Pain better after toradol. Now says she has back muscle spasms since this am. <KHANG WOODSON - Last Filed: 10/11/16 20:34> ED Results Lab/Radiology - Orders Orders: ED Orders Category Date Time Status AMYLASE Routine Lab 10/11/16 Ordered CBC/PLATELET/DIFF Routine Lab 10/11/16 Ordered CMP Routine Lab 10/11/16 Ordered <Arnol Coelho - Last Filed: 10/11/16 18:56> - Lab Results Lab Results: Lab Results 10/11/16 10/11/16 18:50 18:50 WBC 7.00 K/ul K/ul (4.00-12.00) RBC 3.92 M/ul M/ul (3.90-5.20) Hgb 13.8 g/dL g/dL (12.0-16.0) Hct 39.8 % % (34.5-46.5) MCV 101.7 fl H fl (80.0-100.0) MCH 35.1 pg H pg (28.0-34.0) MCHC 34.6 g/dL g/dL (30.0-36.0) RDW 12.7 % % (11.3-14.3) Plt Count 288 K/mm3 K/mm3 (130-400) Neut % (Auto) 64.7 % % (39.0-79.0) Lymph % (Auto) 23.1 % % (16.0-50.0) Gem % (Auto) 7.8 % % (0.0-11.0) Eos % (Auto) 2.1 % % (0.0-6.8) Baso % (Auto) 0.9 (0.0-1.5) Neut # 4.5 # k/uL # k/uL (1.4-7.7) Lymph # 1.6 # k/uL # k/uL (0.6-4.0) Gem # 0.5 # k/uL # k/uL (0.0-0.9) Eos # 0.2 # k/uL # k/uL (0.0-0.6) Baso # 0.1 # k/uL # k/uL (0.0-0.5) Reactive Lymphs % 1.3 % % (0.0-5.0) Reactive Lymphs # 0.1 # k/uL # k/uL (0.0-0.8) Sodium 136 mmol/L mmol/L (136-145) Potassium 3.5 mmol/L mmol/L (3.5-5.0) Chloride 95 mmol/L L mmol/L (98-110) Carbon Dioxide 32 mmol/L mmol/L (20-32) BUN 5 mg/dL L mg/dL (10-26) Creatinine 0.6 mg/dL mg/dL (0.4-1.5) Estimated Creat Clear 118 Est GFR ( Amer) > 60 (60 - ) Est GFR (Non-Af Amer) > 60 (60 - ) Glucose 124 mg/dL H mg/dL (70-99) Calcium 10.3 mg/dL mg/dL (8.5-10.5) Total Bilirubin 0.3 mg/dL mg/dL (0.2-1.2) AST 42 U/L H U/L (0-41) ALT 42 U/L U/L (0-45) Alkaline Phosphatase 78 U/L U/L (46-116) Total Protein 8.0 g/dL g/dL (6.0-8.5) Albumin 4.4 g/dL g/dL (3.0-5.5) Amylase 82 U/L U/L (20-104) - Orders Orders: ED Orders Category Date Time Status AMYLASE Routine Lab 10/11/16 18:50 Completed CBC/PLATELET/DIFF Routine Lab 10/11/16 Ordered CBC/PLATELET/DIFF Routine Lab 10/11/16 18:50 Completed CMP Routine Lab 10/11/16 18:50 Completed UA [URINALYSIS] Routine Lab 10/11/16 Ordered Gi Cocktail Med 10/11/16 19:35 Ordered Mag Hydrox/Al Hydrox/Simeth [Mylanta] 30 ml Lidocaine 2%Visc 15ml [Xylocaine] 20 mg PHENobarb/HYOSCY/ATROPINE/SCOP [] 10 ml PO NOW Promethazine HCl [Phenergan] Med 10/11/16 19:26 Once 25 mg IM NOW ONE <KHANG WOODSON - Last Filed: 10/11/16 20:34> Chest Pain Physical Exam - EXAM General Appearance: alert, moderate distress (tearful) EENT: eye inspection normal, ENT inspection normal Neck: nml inspection (supple) Respiratory: no resp. distress, chest non-tender, nml breath sounds CVS: reg. rate & rhythm, no murmur Abdomen: soft, tenderness (mild, diffuse) Rectal: deferred Skin: warm/dry, normal color, other (palpable muscle spasm right lmbar paraspinous area) Extremities: non-tender, no evidence of injury, no edema Neuro: CN's nml as tested, motor nml, sensation nml <KHANG WOODSON - Last Filed: 10/11/16 20:34> Discharge <Arnol Coelho - Last Filed: 10/11/16 18:56> Decision to Admit: NO Decision Time: 20:30 <KHANG WOODSON - Last Filed: 10/11/16 20:34> Clincal Impression: abdominal pain Home Medications: Ambulatory Orders Carbamazepine [Tegretol] 200 mg PO BID 10/03/16 Cetirizine HCl [Zyrtec] 10 mg PO QDAY 10/03/16 Chlordiazepoxide HCl [Librium] 50 mg PO Q4 PRN 10/03/16 Citalopram Hydrobromide [Celexa] 20 mg PO QD 10/03/16 Fluticasone Propionate [Flovent Diskus] 50 mcg IH PRN 10/03/16 Hydroxyzine HCl [Atarax] 25 - 50 mg PO TID PRN 10/03/16 Pantoprazole Sodium [Protonix] 40 mg PO 0700 10/03/16 Thiamine HCl [Vitamin B-1] 100 mg PO QDAY 10/03/16 Trazodone HCl 25 - 50 mg PO HS PRN 10/03/16 Vit B Comp&C/Folic Acid/Vit D3 [Dialyvite 800 Plus D Wafer] 1 each PO QDAY 10/03 amLODIPine BESYLATE [Norvasc] 5 mg PO 0900 10/03/16 Buspirone HCl [BUSPAR] 10 mg PO TID 10/11/16 Naltrexone HCl [Revia] 50 mg PO DAILY 10/11/16 Ondansetron HCl Rapdis [Zofran Odt] 4 mg PO Q6 PRN 10/11/16 Oxazepam [Serax] 30 mg PO Q4H PRN 10/11/16 Promethazine HCl [Phenergan] 25 mg IJ Q6H PRN 10/11/16 Condition: Good Disposition: 01 HOME, SELF-CARE
[2016-10-11 18:58] LABS: BASOPHILS % 0.9 (0.0-1.5); EOSINOPHILS % 2.1 % (0.0-6.8); MEAN CORPUSCULAR HEMOGLOBIN 35.1 pg (28.0-34.0); MEAN CORPUSCULAR VOLUME 101.7 fl (80.0-100.0); MONOCYTES % 7.8 % (0.0-11.0); NEUTROPHILS # 4.5 # k/uL (1.4-7.7)
[2016-10-11 19:18] LABS: eGFR (African) > 60; eGFR (Non-African) > 60
[2016-10-11] MEDS ORDERED: PROMETHAZINE HCL 25 MG/ML VIAL IM ONE (19:26)
[2016-10-11] MEDS ORDERED: MAG HYDROX/AL HYDROX/SIMETH 30 ML, Lidocaine 2%Visc 15ml 20 MG, PHENobarb/HYOSCY/ATROPI... PO ONE ×3 (19:35)
[2016-10-11] MEDS ORDERED: Lidocaine 2%Visc 15ml 20 MG/ML UDC ONE (19:39)
[2016-10-11] MEDS ORDERED: MAG HYDROX/AL HYDROX/SIMETH 30 ML UDC PO ONE (19:39)
[2016-10-11] MEDS ORDERED: KETOROLAC TROMETHAMINE 60 MG/2 ML VIAL IM ONE (20:04)
[2016-10-11] MEDS ORDERED: KETOROLAC TROMETHAMINE 60 MG/2 ML VIAL ONE (20:05)
[2016-10-11] MEDS ORDERED: LORazepam 1 MG TABLET PO ONE ×2 (20:05→20:06)
[2016-10-11 20:48] VITALS: BP 145/114
[2016-10-12 05:54] LABS: APPEARANCE,URINE CLEAR (CLEAR); COLOR,URINE YELLOW (YELLOW); OCCULT BLOOD,URINE NEGATIVE (NEGATIVE); PH URINE 8.5 (5.0 - 8.0); UROBILINOGEN URINE 0.2 Eu (0.2-1.0)
== END 2016-10-11 20:40 | disposition home or self-care (01) ==
LOC: ED 18:04
DX: R10.9 Unspecified abdominal pain (principal)
CPT/HCPCS: 80053; 82150; 85025; A9270; J1885; J2550; 81002; 99283; S1016

== ENCOUNTER 2016-11-29 07:04 | Observation (INO) | payer OTHER ==
[2016-11-29] MEDS ORDERED: 0.9 % SODIUM CHLORIDE 1,000 ML IV ONE ×2 (07:25→13:20)
[2016-11-29] MEDS ORDERED: 0.9 % SODIUM CHLORIDE 1,000 ML IV SCH (07:30)
[2016-11-29] MEDS: ONDANSETRON HCL/PF 4 MG/ 2ML VIAL IVP ONE ×2 (07:35→12:56)
[2016-11-29 07:37] LABS: BASOPHILS % 0.5 (0.0-1.5); EOSINOPHILS % 2.1 % (0.0-6.8); MEAN CORPUSCULAR VOLUME 95.9 fl (80.0-100.0); MONOCYTES % 3.1 % (0.0-11.0); NEUTROPHILS # 6.1 # k/uL (1.4-7.7)
--- NOTE | 2016-11-29 07:37 | ED Physician Documentation ---
General Adult - HISTORIAN Historian: patient - HPI Chief Complaint: Nausea,Vomiting,Diarrhea Onset: hours (started 0330 this AM. 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 Last dirnk was yesterday, drinking wiskey at 1 pint a day. Has been drinking for 15yrs. Patient was at [facility] about 2 months ago. Maintined sobriety for about 4 weeks.) - ROS CONST: denies: fever, chills - PAST HX Past History: hypertension Other History: other (history of pancreatitis, Had a seizure about one year ago , no known etiology noted. ) Immunizations: referred to PCP Allergies/Adverse Reactions: Allergies Allergy/AdvReac Type Severity Reaction Status Date / Time aspirin AdvReac Nausea/Vomi Verified 11/29/16 07:33 ting Home Medications: Ambulatory Orders Medication Instructions Recorded Carbamazepine [Tegretol] 200 mg PO BID 10/03/16 Cetirizine HCl [Zyrtec] 10 mg PO QDAY 10/03/16 Chlordiazepoxide HCl [Librium] 50 mg PO Q4 PRN 10/03/16 Citalopram Hydrobromide [Celexa] 20 mg PO QD 10/03/16 Fluticasone Propionate [Flovent 50 mcg IH PRN 10/03/16 Diskus] Hydroxyzine HCl [Atarax] 25 - 50 mg PO TID PRN 10/03/16 Pantoprazole Sodium [Protonix] 40 mg PO 0700 10/03/16 Thiamine HCl [Vitamin B-1] 100 mg PO QDAY 10/03/16 Trazodone HCl 25 - 50 mg PO HS PRN 10/03/16 Vit B Comp&C/Folic Acid/Vit D3 1 each PO QDAY 10/03/16 [Dialyvite 800 Plus D Wafer] amLODIPine BESYLATE [Norvasc] 5 mg PO 0900 10/03/16 Buspirone HCl [BUSPAR] 10 mg PO TID 10/11/16 Naltrexone HCl [Revia] 50 mg PO DAILY 10/11/16 Ondansetron HCl Rapdis [Zofran Odt] 4 mg PO Q6 PRN 10/11/16 Oxazepam [Serax] 30 mg PO Q4H PRN 10/11/16 Promethazine HCl [Phenergan] 25 mg IJ Q6H PRN 10/11/16 - SOCIAL HX Smoking History: less than 1 pack/day (1/2 ppd) Alcohol Use: heavy Drug Use: marijuana - FAMILY HX Family History: No - VITAL SIGNS Vital Signs: Vital Signs Temp Pulse Resp BP Pulse Ox 145/114 10/11/16 20:40 - REVIEWED ASSESSMENTS Nursing Assessment Reviewed: Yes Progress - Progress Progress: 08:02 Vomiting is improved some, still nauseated. Will give some protonix IV K is low, will add KCl to IV fluids. 09:04 Patient is still coughing a lot with vomiting 09:47 Patient has been drinking out of the water [place] even though she has been advised to be NPO. Patient continues to cough then vomit. ED Results Lab/Radiology - Orders Orders: ED Orders Category Date Time Status Place IV Lock 1T Care 11/29/16 07:14 Active AMYLASE Routine Lab 11/29/16 Ordered CBC/PLATELET/DIFF Routine Lab 11/29/16 Ordered CMP Routine Lab 11/29/16 Ordered DRUG SCREEN URINE MEDICAL ONLY Routine Lab 11/29/16 Ordered ETHANOL MEDICAL USE ONLY Routine Lab 11/29/16 Ordered URINALYSIS Routine Lab 11/29/16 Ordered 0.9 % Sodium Chloride [Normal Saline] 1,000 ml Med 11/29/16 07:30 Ordered IV .Q1H Ondansetron HCl/Pf [Zofran 4 mg/2 ml] Med 11/29/16 07:15 Discontinued 8 mg IVP NOW ONE General Adult Physical Exam - PHYSICAL EXAM GENERAL APPEARANCE: mild distress EENT: ENT inspection normal, pharynx normal, no signs of dehydration NECK: normal inspection, thyroid normal, supple RESPIRATORY: no resp distress, chest non-tender, breath sounds normal. No: wheezes, rales, rhonchi CVS: reg rate & rhythm, heart sounds normal, equal pulses, no murmur, no gallop ABDOMEN: soft, no organomegaly, tenderness (mild diffuse tenderness), decreased BS BACK: normal inspection, no CVA tenderness SKIN: warm/dry, normal color NEURO: oriented X3, CN's nml as tested, mood/affect nml, cognition normal Discharge Clincal Impression: Alcohol abuse Nausea & vomiting Qualifiers: Vomiting Intractability: intractable Referrals: Samson Lopez MD [Primary Care Provider] - 2 Days Home Medications: Ambulatory Orders Carbamazepine [Tegretol] 200 mg PO BID 10/03/16 Cetirizine HCl [Zyrtec] 10 mg PO QDAY 10/03/16 Chlordiazepoxide HCl [Librium] 50 mg PO Q4 PRN 10/03/16 Citalopram Hydrobromide [Celexa] 20 mg PO QD 10/03/16 Fluticasone Propionate [Flovent Diskus] 50 mcg IH PRN 10/03/16 Hydroxyzine HCl [Atarax] 25 - 50 mg PO TID PRN 10/03/16 Pantoprazole Sodium [Protonix] 40 mg PO 0700 10/03/16 Thiamine HCl [Vitamin B-1] 100 mg PO QDAY 10/03/16 Trazodone HCl 25 - 50 mg PO HS PRN 10/03/16 Vit B Comp&C/Folic Acid/Vit D3 [Dialyvite 800 Plus D Wafer] 1 each PO QDAY 10/03 amLODIPine BESYLATE [Norvasc] 5 mg PO 0900 10/03/16 Buspirone HCl [BUSPAR] 10 mg PO TID 10/11/16 Naltrexone HCl [Revia] 50 mg PO DAILY 10/11/16 Ondansetron HCl Rapdis [Zofran Odt] 4 mg PO Q6 PRN 10/11/16 Oxazepam [Serax] 30 mg PO Q4H PRN 10/11/16 Promethazine HCl [Phenergan] 25 mg IJ Q6H PRN 10/11/16 Comments: Since patient continues to have cough and vomiting will admit for further care. Condition: Stable Disposition: 01 HOME, SELF-CARE Decision to Admit: [id number] (t) Date of Decison to Admit: 11/29/16 Decision Time: 09:52
[2016-11-29 07:49] LABS: eGFR (African) > 60; eGFR (Non-African) > 60
[2016-11-29] MEDS ORDERED: PANTOPRAZOLE SODIUM 40 MG in 0.9 % SODIUM CHLORIDE 50 ML IV ONE (07:56)
[2016-11-29] MEDS ORDERED: POTASSIUM CHLORIDE 20 MEQ/10ML VIAL IV ONE (07:58)
[2016-11-29] MEDS ORDERED: PHARMACY KEY 1 EACH EACH MC ONE (08:00)
[2016-11-29] MEDS ORDERED: CARBAMAZEPINE 200 MG TABLET PO ONE ×4 (09:43→17:08)
[2016-11-29] MEDS ORDERED: ONDANSETRON HCL/PF 4 MG/ 2ML VIAL IVP PRN (11:02)
[2016-11-29] MEDS ORDERED: HYDROXYZINE HCL 25 MG TABLET PO PRN (11:04)
[2016-11-29] MEDS ORDERED: SALINE FLUSH 10 ML DISP.SYRIN IVF ONE ×3 (11:22→12:05)
[2016-11-29 11:32] VITALS: BMI 19.6
[2016-11-29] MEDS ORDERED: amLODIPine BESYLATE 5 MG TABLET ONE (12:06)
[2016-11-29] MEDS ORDERED: BUSPIRONE HCL 5 MG TABLET PO ONE (13:10)
[2016-11-29] MEDS: CARBAMAZEPINE 200 MG TABLET PO SCH ×3 (13:17→20:09)
[2016-11-29] MEDS: amLODIPine BESYLATE 5 MG TABLET PO SCH (13:18)
[2016-11-29] MEDS ORDERED: FOLIC ACID 5 MG/1 ML ONE (13:20)
[2016-11-29] MEDS ORDERED: MVI, ADULT NO.1 WITH VIT K 10 ML VIAL IV ONE (13:20)
[2016-11-29] MEDS ORDERED: THIAMINE HCL 100 MG/ML 2ML VIAL ONE (13:20)
[2016-11-29] MEDS ORDERED: LORazepam 2 MG/ML VIAL ONE (13:22)
[2016-11-29] MEDS ORDERED: LORazepam 1 MG TABLET PO ONE (17:08)
[2016-11-29] MEDS: LORazepam 1 MG TABLET PO PRN (17:16)
[2016-11-29] MEDS: BUSPIRONE HCL 5 MG TABLET PO SCH (20:08)
[2016-11-29] MEDS ORDERED: THIAMINE HCL 100 MG, MVI, ADULT NO.1 WITH VIT K 10 ML, FOLIC ACID 5 MG in 0.9 % SODIUM ... IV SCH ×4 (21:00)
[2016-11-30] MEDS ORDERED: ONDANSETRON HCL 4 MG TAB.RAPDIS ONE ×2 (02:10→08:02)
[2016-11-30] MEDS ORDERED: LORazepam 1 MG TABLET PO ONE (02:11)
[2016-11-30] MEDS: ONDANSETRON HCL 4 MG TAB.RAPDIS PO PRN ×2 (02:12→08:14)
[2016-11-30] MEDS: LORazepam 1 MG TABLET PO PRN (02:12)
[2016-11-30] MEDS ORDERED: BUSPIRONE HCL 5 MG TABLET PO ONE (04:57)
[2016-11-30] MEDS ORDERED: THIAMINE HCL 100 MG TABLET PO ONE (04:57)
[2016-11-30] MEDS ORDERED: amLODIPine BESYLATE 5 MG TABLET ONE (04:57)
[2016-11-30 06:10] VITALS: BP 121/56
[2016-11-30 06:16] LABS: BASOPHILS % 0.5 (0.0-1.5); EOSINOPHILS % 1.7 % (0.0-6.8); MEAN CORPUSCULAR HEMOGLOBIN 33.1 pg (28.0-34.0); MEAN CORPUSCULAR VOLUME 96.4 fl (80.0-100.0); MONOCYTES % 4.8 % (0.0-11.0); NEUTROPHILS # 5.4 # k/uL (1.4-7.7)
[2016-11-30 06:29] LABS: eGFR (African) > 60; eGFR (Non-African) > 60
[2016-11-30] MEDS: BUSPIRONE HCL 5 MG TABLET PO SCH (08:27)
[2016-11-30] MEDS: CARBAMAZEPINE 200 MG TABLET PO SCH (08:28)
[2016-11-30] MEDS: amLODIPine BESYLATE 5 MG TABLET PO SCH (08:28)
[2016-11-30] MEDS ORDERED: THIAMINE HCL 100 MG TABLET PO SCH (09:00)
== END 2016-11-30 09:00 | disposition short-term general hospital (02) ==
LOC: ED 07:04 → SOUTH 09:50 → INTOOBSV 09:50
PROVIDERS: ADMIT Family Medicine; ATTEND Family Medicine
CPT/HCPCS: 36415 ×2; 80053 ×2; 80320 ×2; 82150 ×2; 85025 ×2; 96361; 96374; 99284; A9270; G0378; J2060 ×2; J2405 ×2; J3411 ×2; J3480 ×2; J3490 ×2; J7030; G0379; G0480; S1016